=== PATIENT | male | born 1980 | race Caucasian/White ===

== ENCOUNTER 2022-02-27 12:33 | Emergency (ER) | payer MEDICARE ==
[~2022-02-27] VITALS: Ht 180.3 cm; Wt 95.5 kg
[2022-02-27] MEDS ORDERED: ALBUTEROL SULFATE 2.5 MG/0.5 ML NEB SOLUTION NEB ONE (13:45)
[2022-02-27] MEDS ORDERED: IPRATROPIUM BROMIDE 0.5 MG/2.5 ML NEB SOLUTION NEB ONE (13:45)
[2022-02-27] MEDS ORDERED: PredniSONE 20 MG TABLET PO ONE (13:45)
[2022-02-27] MEDS ORDERED: PRED-554 PO (15:18)
[2022-02-27] MEDS ORDERED: AZIT250T9 PO (15:18)
[2022-02-27] MEDS ORDERED: ALBU90AE2 PUFF (15:35)
[2022-02-27 23:04] VITALS: BP 139/86
== END 2022-02-27 23:07 | disposition home or self-care (01) ==
LOC: EMS 12:33
DX: J45.909 Unspecified asthma, uncomplicated (principal)
CPT/HCPCS: 71046; 94640; 99283; J7512; J7613

== ENCOUNTER 2022-06-08 14:12 | Emergency (ER) | payer OTHER ==
[~2022-06-08] VITALS: Ht 177.8 cm; Wt 102.3 kg
[~2022-06-08 14:12] MED LIST: ALBU90AE2 PUFF; AZIT250T9 PO; PRED-554 PO
[2022-06-08 14:24] VITALS: BP 162/100
[2022-06-08 14:52] LABS: COVID AG,FIA SOURCE NASAL SWAB
[2022-06-08] MEDS ORDERED: IBUP-2070 PO (16:22)
[2022-06-08] MEDS ORDERED: ACET-3385 PO (16:26)
== END 2022-06-08 17:10 | disposition home or self-care (01) ==
LOC: EMS 14:13
DX: U07.1 COVID-19 (principal); J45.909 Unspecified asthma, uncomplicated; Z79.899 Other long term (current) drug therapy
CPT/HCPCS: 99283

== ENCOUNTER 2022-10-16 08:56 | Emergency (ER) | payer OTHER ==
[~2022-10-16] VITALS: Ht 180.3 cm; Wt 97.7 kg
[~2022-10-16 08:56] MED LIST changes: +ACET-3385 PO; +IBUP-2070 PO
[2022-10-16 09:15] LABS: COVID AG,FIA SOURCE NASOPHARYNGEAL
[2022-10-16 09:19] VITALS: BP 146/85
[2022-10-16] MEDS ORDERED: PredniSONE 20 MG TABLET PO ONE (09:30)
[2022-10-16] MEDS ORDERED: ALBUTEROL SULFATE HFA 90 MCG/PUFF 8 GM INHALER IH ONE (09:30)
[2022-10-16] MEDS ORDERED: PRED-554 PO (09:43)
[2022-10-16 10:44] LABS: INFLUENZA TYPE A NEGATIVE FOR TYPE A (NEGATIVE); INFLUENZA TYPE B NEGATIVE FOR TYPE B (NEGATIVE)
== END 2022-10-16 09:59 | disposition home or self-care (01) ==
LOC: EMS 08:58
DX: J40 Bronchitis, not specified as acute or chronic (principal); Z20.822 Contact with and (suspected) exposure to COVID-19
CPT/HCPCS: 99284; 71046; 87426; 87804; 94640; J7512; C9803; J3535

== ENCOUNTER 2025-07-18 23:18 | Emergency (ER) | payer OTHER ==
[~2025-07-18] VITALS: Ht 177.8 cm; Wt 95.5 kg
[~2025-07-18 23:18] MED LIST changes: -ALBU90AE2 PUFF; +ALBU90AE3 PUFF; +IBUP-1492 PO; -IBUP-2070 PO
[2025-07-18 23:32] VITALS: TEMP 98.1
[2025-07-18 23:46] LABS: GLUCOMETER DEV NAME(LOC) ERT.7; GLUCOSE,POINT OF CARE 162 MG/DL (70-110)
[2025-07-19] MEDS: LIDOCAINE 1% 10 ML VIAL ID ONE (01:39)
[2025-07-19 03:00] VITALS: BP 123/85; PULSE 85; RESP 19; O2SAT 97
== END 2025-07-19 05:46 | disposition home or self-care (01) ==
LOC: EMS 23:20
DX: S71.111A Laceration without foreign body, right thigh, initial encounter (principal); E11.9 Type 2 diabetes mellitus without complications; J45.909 Unspecified asthma, uncomplicated; Z79.52 Long term (current) use of systemic steroids; W45.8XXA Other foreign body or object entering through skin, initial encounter; Y93.89 Activity, other specified; Y92.89 Other specified places as the place of occurrence of the external cause; Y99.8 Other external cause status
CPT/HCPCS: 99282; 82962; 12005; J3490

== ENCOUNTER 2025-08-03 14:54 | Emergency (ER) | payer OTHER ==
[~2025-08-03] VITALS: Ht 180.3 cm; Wt 96.4 kg
[2025-08-03 15:02] VITALS: TEMP 98
[2025-08-03 15:21] VITALS: BP 136/88; PULSE 96; RESP 16; O2SAT 98
== END 2025-08-03 17:22 | disposition home or self-care (01) ==
LOC: EMS 14:54
DX: S71.111D Laceration without foreign body, right thigh, subsequent encounter (principal); J45.909 Unspecified asthma, uncomplicated; X58.XXXD Exposure to other specified factors, subsequent encounter; Z79.899 Other long term (current) drug therapy
CPT/HCPCS: 99282; Z7502